=== PATIENT | female | born 1960 | race Caucasian/White ===

== ENCOUNTER 2017-04-25 11:51 | Emergency (ER) | payer OTHER ==
[~2017-04-25] VITALS: Ht 160 cm; Wt 65.0 kg
[2017-04-25 11:53] VITALS: Ht 160 cm; Wt 65.0 kg
[2017-04-25] MEDS ORDERED: AMO500 PO (12:36)
[2017-04-25] MEDS ORDERED: IBUP-1542 PO (12:36)
--- NOTE | 2017-04-25 13:42 | ERD ---
ER Documentation Chief Complaint Date/Time DATE: 04/25/17 TIME: 13:41 Chief Complaint sore throat x 4 days HPI Patient is a 57-year-old female with diabetes who presents with sore throat. She has sore throat which started on Monday she says it started initially as a right-sided sore throat now is both sides. She has fever as well. She tried ibuprofen for pain. Upon review of old medical records this is the patient's first visit to the emergency department. She has no trouble with breathing. ROS All systems reviewed and are negative except as per history of present illness. Medications Home Meds Active Scripts Ibuprofen* (Motrin*) 600 Mg Tab, 600 MG PO Q8, #30 TAB Prov:EILEEN COLE MD 04/25/17 Amoxicillin* (Amoxicillin*) 500 Mg Cap, 500 MG PO TID for 10 Days, CAP Prov:EILEEN COLE MD 04/25/17 Allergies Allergies: Coded Allergies: No Known Allergy (Unverified , 04/25/17) PMhx/Soc Medical and Surgical Hx: pt denies Medical Hx, pt denies Surgical Hx Hx Alcohol Use: No Hx Substance Use: No Hx Tobacco Use: No Smoking Status: Never smoker FmHx Family History: diabetes Physical Exam Vitals Vital Signs Date Time Temp Pulse Resp B/P Pulse Ox O2 Delivery O2 Flow Rate FiO2 04/25/17 11:53 98.3 111 18 131/74 98 Physical Exam Const: No obvious distress Head: Atraumatic Eyes: Normal Conjunctiva ENT: Redness to the throat on both tonsils without pus Neck: Full range of motion..~ No meningismus. No stridor over the neck Resp: Clear to auscultation bilaterally Cardio: Regular rate and rhythm, no murmurs Abd: Soft, non tender, non distended. Normal bowel sounds Skin: No petechiae or rashes Back: No midline or flank tenderness Ext: No cyanosis, or edema Neur: Awake and alert Psych: Normal Mood and Affect Procedures/MDM Patient is a 57-year-old female with diabetes who presents with a sore throat. I am concerned for an acute pharyngitis and I will treat her with amoxicillin for 10 day course. She will need to follow-up with a primary doctor within 24- 48 hours. At this point I doubt peritonsillar abscess, retropharyngeal abscess , or epiglottitis. I do not believe patient requires further workup or admission the hospital at this time. Departure Diagnosis: Primary Impression: Pharyngitis Pharyngitis/tonsillitis etiology: unspecified etiology Qualified Code: J02.9 - Pharyngitis, unspecified etiology Additional Impression: Sore throat Condition: Fair Patient Instructions: Pharyngitis, Strep (Presumed) Referrals: Your doctor Additional Instructions: Llame al doctor nombrado abajo (Referral Sources) MAANA y quang larry KIM PARA DENTRO DE LARRY SEMANA. Dgale a la secretaria que nosotros le instruimos hacer esta kim.Avise o llame si marcos condicin se empeora antes de la kim. EILEEN COLE MD Apr 25, 2017 13:42
== END 2017-04-25 13:15 | disposition home or self-care (01) ==
LOC: FTE 11:51
DX: J02.9 Acute pharyngitis, unspecified (principal); E11.9 Type 2 diabetes mellitus without complications
CPT/HCPCS: 99283

== ENCOUNTER 2018-01-28 16:19 | Emergency (ER) | END 2018-01-28 18:31 | disposition home or self-care (01) ==

== ENCOUNTER 2018-02-26 12:17 | Emergency (ER) | END 2018-02-26 12:44 | disposition home or self-care (01) ==